=== PATIENT | male | born 1970 | race African-American/Black ===

== ENCOUNTER → 2018-12-10 | Outpatient (CLI) | payer OTHER | LOC: BMCLAB 17:01 | PROVIDERS: ATTEND Family Medicine | DX: M54.5 Low back pain (principal); R93.7 Abnormal findings on diagnostic imaging of other parts of musculoskeletal system ==

== ENCOUNTER → 2018-12-27 | Outpatient (CLI) | payer OTHER ==
[~2018-12-27] MED LIST: GADOBUTROL 10 ML VIAL IVP ONE
== END ==
LOC: FIMAGING 13:40
PROVIDERS: ATTEND Family Medicine
DX: M89.9 Disorder of bone, unspecified (principal); M51.37 Other intervertebral disc degeneration, lumbosacral region
CPT/HCPCS: A9585